=== PATIENT | male | born 1960 | race Caucasian/White ===

== ENCOUNTER → 2019-07-04 | Outpatient (CLI) | payer OTHER ==
[~2019-07-04] MED LIST: BYSTOLIC2.5 MG PO; COZAAR 25 MG TA25 M1 PO; LIPITOR 20 MG T20 M1 PO; METFORMIN HCL500 M3 PO; PLAVIX 75 MG TA75 MG PO; SERTRALINE HCL100 MG PO
== END ==
LOC: CAT 11:06
DX: Z13.6 Encounter for screening for cardiovascular disorders (principal); E78.00 Pure hypercholesterolemia, unspecified; I25.10 Atherosclerotic heart disease of native coronary artery without angina pectoris

== ENCOUNTER → 2019-08-01 | Outpatient (CLI) | payer BC ==
[~2019-08-01] VITALS: Ht 167.6 cm; Wt 79.8 kg
[2019-08-01 07:01] VITALS: BP 153/56
[2019-08-01 07:08] LABS: HEMATOCRIT 43.8 % (42.0-52.0); HEMOGLOBIN 15.2 gm/dL (14.0-18.0); MCH 32.2 pg (26.0-34.0); MCHC 34.7 g/dL (28.0-37.0); MCV 92.8 fL (80.0-100.0); RBC 4.72 mil/uL (4.50-6.00); RDW 12.7 % (10.5-14.5); WBC 6.4 thou/uL (4.0-11.0)
--- NOTE | 2019-08-01 09:05 | EKG ---
[place] [address] [facility] [place] [address] ELECTROCARDIOGRAM REPORT Name: AMANUEL RIGGS ALAN Room #: REG [id number] Admission: 08/01/19 Attend Phys: Carloz Gray MD, Discharge: Date of : 64 Report #: [id number] THIS REPORT FOR: //name// [facility] Test Date: 2019-08-01 Test Time: 07:06:43 Pat Name: AMANUEL RIGGS Department: Room: Gender: Sanitation Laborer: [facility] : 1960 Requested By: Carloz Gray Order Number: [id number] MD: Wolfgang Vogel Measurements Intervals [place] Rate: 53 P: -2 [place]: 141 QRS: 20 QRSD: 86 T: 36 QT: 426 QTc: 400 Interpretive Statements Sinus bradycardia Otherwise no significant abnormality No previous ECG available for comparison Electronically Signed On 08-01-2019 9:05:24 [employer] by Wolfgang Vogel [email or web address] <ELECTRONICALLY SIGNED> By: Wolfgang Vogel MD, [facility] 08/01/19904 5 5 Wolfgang Vogel MD, FACC /EPI
--- NOTE | 2019-08-03 16:52 | CATHLAB ---
[facility] [address] [place] [address] INVASIVE PROCEDURE REPORT Name: AMANUEL RIGGS Room #: REG ALEXI Finn#: [id number] Admission: 08/01/19 Attend Phys: Carloz Gray, Discharge: Date of : 64 Report #: [id number] THIS REPORT FOR: //name// APPROVED REPORT Study performed: 08/01/2019 07:59:39 Patient Details Patient Status: Out-Patient Room #: The patient is a 59 year-old male Event Personnel Carloz Gray Senior Bioinformatics Scientist, Oscar Michel RTR Monitor, Daniel Du Monitor, Kayce Rao RTR [employer] Ashley RN marketing project lead Performed Left Heart Cath w/or w/o Coronaries [id number] [facility] Aortogram Abdominal Peripheral Angio 130944 Indication Chest pain Procedure Narrative The Right Groin^ was infiltrated with 1% Lidocaine subcutaneous anesthesia. A PINNACLE 6FR Sheath #[id number] sheath was inserted into the RFA^. Coronary angiography was performed using coronary diagnostic catheters. The right coronary system was accessed and visualized with a JR4 catheter. The left coronary system was accessed and visualized with a JL4 catheter. The left ventricle was accessed and visualized with a PIGTAIL catheter. Left ventriculogram was performed in 30 degree projection. An aortogram of the abdominal aorta was performed. Closure device was deployed with a 6 Fr MYNXGRIP 6/7F #[id number]. The patient tolerated the procedure well and there were no complications associated with the procedure. There was no hematoma. Intraoperative Conscious Sedation Sedation start time: 8.37 Case end Time: 9.03 Fentanyl 100 mcg Versed 2 mg Fluoro Time: 1.30 minutes Dose: DAP 3094.40 cGycm2 381 mGy Contrast Type and Amount: Omnipaque 125 ml [facility] [place] [place] [address] INVASIVE PROCEDURE REPORT Name: AMANUEL RIGGS Room #: [facility] Huma#: [id number] Admission: 08/01/19 Attend Phys: Carloz Gray, Discharge: Date of : 64 Report #: [id number] Hemodynamics The aortic pressure is 149/64 mmHg with a mean of 98 mmHg. The left ventricular pressure is 155/10 mmHg with a mean of mmHg. The left ventricular end diastolic pressure is 31 mmHg. Conclusion #1 normal left ventricular size and systolic function EF 55% subtle inferior apical wall leg #2 abdominal aorta is intact with mild tortuosity no aneurysm or significant narrowing is noted. #3 left main moderately calcified giving rise to LAD and circumflex mild ostial disease 20% #4 LAD with moderately heavy proximal calcification moderate disease in the mid vessel large septal hydrator and then occlusion of the distal third of this vessel with faint left to left collateral filling this is a story small attenuated segment would not be amenable to intervention or bypass. #5 there is a large codominant circumflex system. This is mildly disease distally. It is supplying a good portion of the inferior wall. #6 codominant right is a smaller attenuated vessel. Very small PDA SHANNAN distribution. No indication for intervention. Recommendations and plan: Continue aggressive risk factor modification. As of smaller diffusely attenuated distal third of the LAD. This not amenable to intervention. But collateral filling has significantly help perfusion of the segment. LV function is preserved. Follow-up will be scheduled <ELECTRONICALLY SIGNED> By: Carloz Gray MD, FACC 08/03/191650 50 50 Carloz Gray MD, FACC /INF
== END | disposition home or self-care (01) ==
LOC: CATH 06:25
PROVIDERS: Internal Medicine Cardiovascular Disease
DX: R94.39 Abnormal result of other cardiovascular function study (principal); I25.10 Atherosclerotic heart disease of native coronary artery without angina pectoris; R07.9 Chest pain, unspecified; R93.1 Abnormal findings on diagnostic imaging of heart and coronary circulation; I10 Essential (primary) hypertension; E11.9 Type 2 diabetes mellitus without complications; E78.5 Hyperlipidemia, unspecified; E78.00 Pure hypercholesterolemia, unspecified; Z98.890 Other specified postprocedural states; Z79.899 Other long term (current) drug therapy; Z86.73 Personal history of transient ischemic attack (TIA), and cerebral infarction without residual deficits

== ENCOUNTER → 2020-04-15 | Outpatient (CLI) | payer BC | LOC: SJCVCIMAG 09:11 | PROVIDERS: ATTEND Internal Medicine Cardiovascular Disease | DX: I08.3 Combined rheumatic disorders of mitral, aortic and tricuspid valves (principal); I25.10 Atherosclerotic heart disease of native coronary artery without angina pectoris; E11.649 Type 2 diabetes mellitus with hypoglycemia without coma; Z87.891 Personal history of nicotine dependence ==

== ENCOUNTER → 2020-09-18 | Outpatient (CLI) | payer OTHER | LOC: SJCVCIMAG 08:34 | PROVIDERS: ATTEND Internal Medicine Cardiovascular Disease | DX: I25.10 Atherosclerotic heart disease of native coronary artery without angina pectoris (principal); R00.0 Tachycardia, unspecified; I49.3 Ventricular premature depolarization; E11.9 Type 2 diabetes mellitus without complications; E78.5 Hyperlipidemia, unspecified; I10 Essential (primary) hypertension; Z79.899 Other long term (current) drug therapy; Z87.891 Personal history of nicotine dependence ==

== ENCOUNTER → 2020-11-18 | Outpatient (CLI) | payer OTHER | LOC: SJCVC 13:42 | PROVIDERS: ATTEND Internal Medicine Cardiovascular Disease | DX: R94.31 Abnormal electrocardiogram [ECG] [EKG] (principal); I35.2 Nonrheumatic aortic (valve) stenosis with insufficiency; I25.10 Atherosclerotic heart disease of native coronary artery without angina pectoris; I10 Essential (primary) hypertension; E78.00 Pure hypercholesterolemia, unspecified; E11.9 Type 2 diabetes mellitus without complications; E78.5 Hyperlipidemia, unspecified; L40.9 Psoriasis, unspecified; M54.12 Radiculopathy, cervical region; Z86.73 Personal history of transient ischemic attack (TIA), and cerebral infarction without residual deficits; Z87.891 Personal history of nicotine dependence; Z72.89 Other problems related to lifestyle; Z79.899 Other long term (current) drug therapy; Z88.0 Allergy status to penicillin ==

== ENCOUNTER → 2021-08-12 | Outpatient (CLI) | payer OTHER, MEDICARE | LOC: SJCVC 13:21 | PROVIDERS: ATTEND Internal Medicine Cardiovascular Disease | DX: I25.10 Atherosclerotic heart disease of native coronary artery without angina pectoris (principal); I10 Essential (primary) hypertension; E78.00 Pure hypercholesterolemia, unspecified; I38 Endocarditis, valve unspecified; E11.9 Type 2 diabetes mellitus without complications; R01.1 Cardiac murmur, unspecified; I35.0 Nonrheumatic aortic (valve) stenosis; E78.5 Hyperlipidemia, unspecified; Z86.73 Personal history of transient ischemic attack (TIA), and cerebral infarction without residual deficits; Z87.891 Personal history of nicotine dependence; Z72.89 Other problems related to lifestyle; Z79.84 Long term (current) use of oral hypoglycemic drugs; Z79.899 Other long term (current) drug therapy; Z88.0 Allergy status to penicillin ==